=== PATIENT | male | born 1980 | race Caucasian/White ===

== ENCOUNTER → 2018-02-12 12:12 | Outpatient (CLI) | payer OTHER, SELFPAY ==
--- NOTE | 2018-02-12 12:20 | RAD_ITS ---
STUDY: X-RAY - RIGHT HIP REASON FOR EXAM: Male, 37 years old. Right hip pain for one year TECHNIQUE: 2 views of the hip. AP pelvis. COMPARISON: None. FINDINGS: Normal femoral head, neck, intertrochanteric region and visualized proximal femur. Normal acetabulum. Normal hip joint. Pelvic ring is intact. Sacroiliac joints and pubic symphysis are normal. RAD/HIP, UNI W/ Pelvis 2-3 Views IMPRESSION: Normal x-ray examination of the right hip and pelvis. Electronically Signed: Terrell Harley MD at 11:53 EST , Service support ,
--- NOTE | 2018-02-12 12:20 | RAD_ITS ---
STUDY: X-RAY - LUMBAR SPINE REASON FOR EXAM: Male, 37 years old. Right hip pain for one year TECHNIQUE: 5 view(s) of the lumbar spine were obtained. COMPARISON: None FINDINGS: Normal lumbar lordosis. There is no substantial scoliosis. There is a normal alignment of the vertebrae. Normal vertebral bodies and endplates. Normal disc space heights. There is no demonstrated fracture. There is no demonstrated spondylolysis of the pars interarticulares. The soft tissue structures are unremarkable. RAD/L/S Spine Min 4 Views IMPRESSION: Normal x-ray examination of the lumbar spine. Electronically Signed: Terrell Harley MD at 11:54 EST , Service support ,
--- OUTSIDE RECORDS SUMMARY | 2018-03-31 07:24 | XMS RPT_ITS ---
:1980 Author Organization [facility] Care Team Providers Name Role Phone Zohaib Anand Attending Unavailable Zohaib Anand Referring Unavailable Zohaib Anand Primary Care Unavailable PROBLEMS PROBLEMS No Problem Records FoundPROCEDURES PROCEDURES No Procedure Records FoundRESULTS RESULTS HIP, UNI W/ PELVIS Observed: 02/12/2018 Status: F Source: [place] 2-3 VIEWS 12:20 PM [facility] REPOSITORY [facility] Imaging Services [address] [place] [address] HIP, UNI W/ Pelvis 2-3 Views MR#: [id number] Acct: [id number] Name: ERICKSON ESCUDERO Rep #: [id number] : 1980 M 37 From: Terrell Harley MD PCP: Zohaib Anand MD Status: REG CLI Study: HIP, UNI W/ Pelvis 2-3 Views Date of Exam: 02/12/18 Exam# [id number] Ordering Dr: Ignacio Anand MD STUDY: X-RAY - RIGHT HIP REASON FOR EXAM: Male, 37 years old. Right hip pain for one year TECHNIQUE: 2 views of the hip. AP pelvis. COMPARISON: None. FINDINGS: Normal femoral head, neck, intertrochanteric region and visualized proximal femur. Normal acetabulum. Normal hip joint. Pelvic ring is intact. Sacroiliac joints and pubic symphysis are normal. RAD/HIP, UNI W/ Pelvis 2-3 Views IMPRESSION: Normal x-ray examination of the right hip and pelvis. Electronically Signed: Terrell Harley MD at 11:53 EST , Service support , CC: Zohaib Anand MD Local Driver: Signed L/S SPINE MIN 4 Observed: 02/12/2018 Status: F Source: [place] VIEWS 12:20 PM [facility] REPOSITORY [facility] Imaging Services [address] [place] [address] L/S Spine Min 4 Views MR#: [id number] Acct: [id number] Name: ERICKSON ESCUDERO Rep #: [id number] : 1980 M 37 From: Terrell Harley MD PCP: Zohaib Anand MD Status: REG CLI Study: L/S Spine Min 4 Views Date of Exam: 02/12/18 Exam# [id number] Ordering Dr: Ignacio Anand MD STUDY: X-RAY - LUMBAR SPINE REASON FOR EXAM: Male, 37 years old. Right hip pain for one year TECHNIQUE: 5 view(s) of the lumbar spine were obtained. COMPARISON: None FINDINGS: Normal lumbar lordosis. There is no substantial scoliosis. There is a normal alignment of the vertebrae. Normal vertebral bodies and endplates. Normal disc space heights. There is no demonstrated fracture. There is no demonstrated spondylolysis of the pars interarticulares. The soft tissue structures are unremarkable. RAD/L/S Spine Min 4 Views IMPRESSION: Normal x-ray examination of the lumbar spine. Electronically Signed: Terrell Harley MD at 11:54 EST , Service support , CC: Zohaib Anand MD Local Driver: Signed ALLERGIES ALLERGIES No Allergies Records FoundENCOUNTERS ENCOUNTERS ADMIT/DISCHARGE ACCOUNT ADMITTING ENCOUNTER LOCATION SOURCE NUMBER CLASS 02/12/2018 [id number] Amb[place] [facility] ing:MTRAD Repository PAYERS PAYERS ENCOUNTER GUARANTOR PAYER SUBSCRIBER SOURCE 02/12/2018 ERICKSON May Primary ERICKSON Colón [id number] Insurance:MEDICAL HES[place]OB[place] [facility] [place] Number: Repository [id number]: [phone] [id number] [phone] () Date:[id number] [address]GR: 02/12/2018 Secondary NOT GIVENUNK Matt Insurance:SELF PAY [facility] Number: Effective Repository Date:2018-02-12
== END ==
PROVIDERS: Family Provider Family Medicine; PCP Family Medicine; Referring Provider Family Medicine; Visit Provider Family Medicine
DX: M25.551 Pain in right hip (principal)
CPT/HCPCS: 72110; 73502